=== PATIENT | male | born 1995 | race African-American/Black ===

== ENCOUNTER 2020-06-04 12:59 | Emergency (ER) | payer SELFPAY ==
[~2020-06-04] VITALS: Ht 177.8 cm; Wt 181.0 kg
[2020-06-04 13:27] VITALS: BP 150/81
--- NOTE | 2020-06-04 15:32 | PHYS DOC ---
Past Medical History Past Medical History: No Pertinent History (ANA BERMAN APRN) Smoking Status: Never Smoker Alcohol Use: None (ANA BERMAN APRN) General Adult EDM: Chief Complaint: INSECT BITE HPI: HPI: Patient is a 24 year old male who presents with complaints of waking up with a insect bite to his right lower left quadrant approximately 4 days ago and has since then become red and swollen. Patient states it is slightly painful and rates the pain at a 2/10 pain scale. Patient denies putting any ointments or other treatments to the area other than taking normal baths and showers since noticing the bite. Patient denies any drainage coming from the bite radha. Patient states he is unsure what bit him as he did not see any insect in his bed when he woke up. Patient denies any fever or chills, nasal congestion or sore throat. Patient denies any cough or shortness of breath. Patient denies any chest pains or edema to his extremities. Patient denies any abdominal pains other than the area where the bite radha is on his right lower quadrant area. Patient denies any nausea vomiting or diarrhea or constipation. Patient denies any problems urinating. Patient denies any back or joint pains. Patient does complain of a rash at the area of the bite that has become worse over the past 4 days. Patient denies any itching sensation to the area. Patient denies any headaches, weaknesses, or sensory changes. Patient denies any swollen glands. Patient denies any recent depressions or anxieties or life changes. Patient states no one else living in his home has been bitten nor has the same symptoms as he. (ANA BERMAN APRN) Review of Systems: Review of Systems: Constitutional: Denies fever or chills. Eyes: Denies change in visual acuity. HENT: Denies nasal congestion or sore throat. Respiratory: Denies cough or shortness of breath. Cardiovascular: Denies chest pain or edema. GI: Denies abdominal pain, nausea, vomiting, diarrhea. Musculoskeletal: Denies back pain or joint pain. Integument: Complains of insect bite to right lower quadrant abdomen with rash without purulent drainage without urticaria. Neurologic: Denies headache, focal weakness or sensory changes. Lymphatic: Denies swollen glands. Psychiatric: Denies depression or anxiety. (ANA BERMAN APRN) Heart Score: Risk Factors: Risk Factors: DM, Current or recent (<one month) smoker, HTN, HLP, family history of CAD, obesity. Risk Scores: Score 0 - 3: 2.5% MACE over next 6 weeks - Discharge Home Score 4 - 6: 20.3% MACE over next 6 weeks - Admit for Clinical Observation Score 7 - 10: 72.7% MACE over next 6 weeks - Early Invasive Strategies (ANA BERMAN APRN) Family History: Family History: No family history significant to this ER visit today. (ANA BERMAN APRN) Current Medications: Patient denies taking prescription medications at home. (ANA BERMAN APRN) Allergies: Allergies: Patient denies allergies to medications. Allergies Coded Allergies Type Severity Reaction Last Updated Verified No Known Drug Allergies 06/04/20 No (ANA BERMAN APRN) Physical Exam: PE: Constitutional: Well developed, well nourished, no acute distress, non-toxic appearance. HENT: Normocephalic, atraumatic, bilateral external ears normal, oropharynx moist, no oral exudates, nose normal. Eyes: PERRLA, EOMI, conjunctiva normal, no discharge. Pupils 5 mm. Neck: Normal range of motion, no tenderness, supple, no stridor. Cardiovascular:Heart rate regular rhythm, no murmur heart sounds S1-S2, no abnormalities noted per auscultation Lungs & Thorax: Bilateral breath sounds clear to auscultation all all lung morrow Abdomen: Bowel sounds normal all 4 quadrants, soft, no tenderness, no masses, no pulsatile masses. Skin: Warm, dry, no erythema, has 2 mm lesion lateral to the umbilicus on the right consistent with insect bite, no purulent drainage noted. Induration around bite measuring approximately 11 cm x 5 cm centimeters rectangular shaped raised slightly erythematous rash. Area warm to touch. No target sign noted. Back: No tenderness, no CVA tenderness. Extremities: No tenderness, no cyanosis, no clubbing, ROM intact, no edema. Neurologic: Alert and oriented X 3, normal motor function, normal sensory fun ction, no focal deficits noted. Psychologic: Affect normal, judgement normal, mood normal. (ANA BERMAN APRN) Current Patient Data: Vital Signs: Vital Signs Date Time Temp Pulse Resp B/P (MAP) Pulse Ox O2 Delivery O2 Flow Rate FiO2 06/04/20 13:27 98.1 73 18 150/81 (104) 96 Room Air 98.1 (ANA BERMAN APRN) EKG: EKG: [] (ANA BERMAN APRN) Radiology/Procedures: Radiology/Procedures: [] (ANA BERMAN APRN) Course & Med Decision Making: Course & Med Decision Making Pertinent Labs and Imaging studies reviewed. (See chart for details) 24-year-old male patient presents emergency department complaining of a insect bite to his right lower abdomen area he noticed when he woke up approximately 4 days ago. Patient did not see insect and is not sure what bit him. Patient states it started out as a red radha on his abdomen that was slightly itching and has since then become red and swollen in the area. Without purulent drainage. Upon examination patient had an approximately 2 mm skin lesion consistent with insect bite color dark maroon spherical shaped with erythema and induration light pink skin rash that measured 11 x 5 cm tubular shape around area, no target lesions noted. Patient not complaining of body aches or generalized weaknesses or fevers or chills. No lymphadenopathy noted. Not concerning for tickborne illness. Examination consistent with cellulitis infection after insect bite. Discussed with patient need to start regimen of antibiotics. Reviewed with patient antibiotic use and need to complete antibiotics as dire cted. Reviewed with patient wound care instructions and return to ER concerns. Patient agreeable to discharge planning. Patient to follow-up with the primary care doctor for further evaluation of insect bite. Return to ER concerns. Patient has no further questions or concerns. (NAA BERMAN APRN) Tricia Disclaimer: Tricia Disclaimer: This electronic medical record was generated, in whole or in part, using a voice recognition dictation system. (ANA BERMAN APRN) Departure Departure Impression: Primary Impression: Insect bite (nonvenomous) of abdominal wall, initial encounter Additional Impression: Cellulitis Qualified Codes: L03.311 - Cellulitis of abdominal wall Disposition: HOME, SELF-CARE Condition: GOOD Referrals: NO PCP (PCP) Patient Instructions: Cellulitis, Insect Bite Additional Instructions: TAKE PRESCRIBED ANTIBIOTICS DIRECTED, SEE YOUR DOCTOR SOON FOR RE-EVALUATION. RETURN TO THE ER FOR FURTHER CONCERNS. Scripts Mupirocin (MUPIROCIN OINTMENT) 22 Gm Oint...g. 1 ROSA TP TID for WOUND CARE, #1 TUBE 0 Refills Prov: ANA BERMAN APRN 06/04/20 Cephalexin (CEPHALEXIN) 250 Mg/5 Ml Susp.recon 500 MG PO QID for CELLULITIS INFECTION for 7 Days, #280 SUSPENSION 0 Refills Prov: ANA BERMAN APRN 06/04/20 Justicifation of Admission Dx: Justifications for Admission: Justification of Admission Dx: N/A (ANA BERMAN APRN) Attending Signature Attending Signature I have reviewed the PA/FLEET ASSISTANT's note and plan of care. I was available for consult ation as needed during the patient's visit in the emergency department. I agree with the clinical impression, plan, and disposition. (ANA MITCHELL DO) ANA BERMAN APRN Jun 04, 2020 15:31 ANA MITCHELL DO Jun 06, 2020 06:31
[2020-06-04] MEDS ORDERED: MUPI22OI2 TP (15:41)
[2020-06-04] MEDS ORDERED: CEPH250S30 PO (15:41)
== END 2020-06-04 15:57 | disposition home or self-care (01) ==
LOC: ER 12:59
DX: S30.861A Insect bite (nonvenomous) of abdominal wall, initial encounter (principal); L03.311 Cellulitis of abdominal wall; W57.XXXA Bitten or stung by nonvenomous insect and other nonvenomous arthropods, initial encounter; Y93.89 Activity, other specified; Y92.89 Other specified places as the place of occurrence of the external cause; Y99.8 Other external cause status
CPT/HCPCS: 99283

== ENCOUNTER 2021-06-02 12:16 | Emergency (ER) | payer SELFPAY ==
[~2021-06-02] VITALS: Ht 177.8 cm; Wt 186.0 kg
[~2021-06-02 12:16] MED LIST: CEPH250S30 PO; MUPI22OI2 TP
--- NOTE | 2021-06-02 14:28 | ED.ADGEN ---
Past Medical History Past Medical History: No Pertinent History Smoking Status: Never Smoker Alcohol Use: None General Adult EDM: Chief Complaint: SORE THROAT HPI: HPI: Patient is a morbidly obese 25 year old AA male who presents to the emergency department with complaints of a sore throat, fatigue, headache, nasal congestion, nausea, and nonproductive cough for the last 5 days. Patient states he has not been immunized against COVID-19. He denies any known exposure to COVID-19. Patient does work with the public at [employer]. Patient states he has noticed decreased taste and smell today. He denies any abdominal pain, vomiting, diarrhea, chest pain, palpitations, dizziness, back pain, or dysuria. He currently rates his throat pain a 10 out of 10 on the pain scale, he denies any difficulty speaking he reports pain with swallowing. Patient states he has been able to swallow fluids and keep his liquids down. Review of Systems: Review of Systems: Complete ROS is negative unless otherwise noted in HPI. Allergies: Allergies: Allergies Coded Allergies Type Severity Reaction Last Updated Verified No Known Drug Allergies 06/04/20 No Physical Exam: PE: See Above Constitutional: Well developed, well nourished, no acute distress, non-toxic appearance, morbidly obese. [] HENT: Normocephalic, atraumatic, bilateral external ears normal, nose normal, erythema of posterior pharynx, 2+ tonsils antibiotics [] Eyes: PERRLA, EOMI, conjunctiva normal, no discharge. [] Neck: Normal range of motion, no stridor. [] Cardiovascular:Heart rate regular rhythm Lungs & Thorax: Respirations even and unlabored, no retractions, no respiratory distress Abdomen: soft, no tenderness Skin: Warm, dry, no erythema, no rash. [] Extremities: No cyanosis, ROM intact, no edema. [] Neurologic: Alert and oriented X 3, normal motor, normal sensory, no focal deficits noted. [] Psychologic: Affect normal, judgement normal, mood normal. [] Current Patient Data: Vital Signs: Vital Signs Date Time Temp Pulse Resp B/P (MAP) Pulse Ox O2 Delivery O2 Flow Rate FiO2 06/02/21 15:13 97.7 97 16 148/50 97 Room Air 97.7 EKG: EKG: [] Heart Score: C/O Chest Pain: No Radiology/Procedures: Radiology/Procedures: Rapid strep test is negative, Covid test is pending [] Course & Med Decision Making: Course & Med Decision Making Pertinent Labs and Imaging studies reviewed. (See chart for details) Patient was given verbal discharge instructions by myself. He left prior to receiving his written discharge instructions. 1913-I received a call from the patient and his mother who requested a copy of his written discharge instructions I advised her that he left prior to receiving the written instructions and they can return to the hospital to get a copy of them at the triage desk. [] Dragon Disclaimer: Dragon Disclaimer: This electronic medical record was generated, in whole or in part, using a voice recognition dictation system. Departure Departure Impression: Primary Impression: Pharyngitis Additional Impression: Person under investigation for COVID-19 Disposition: HOME / SELF CARE / HOMELESS Condition: STABLE Referrals: NO PCP (PCP) Patient Instructions: Viral and Bacterial Pharyngitis, Ttah-cm-Evow Additional Instructions: Recommend warm salt water gargles as needed for relief of discomfort. Alternate Tylenol and ibuprofen as needed for fever/pain. Please follow the following COVID-19 instructions your test result is not available yet and should be available within the next 1 to 2 days. Return to the ER if your symptoms worsen or your breathing becomes labored. You have been tested for or diagnosed with COVID-19. It is an infection caused by a new type of coronavirus. COVID-19 will cause cold-like or mild flu symptoms in most. It can cause more severe symptoms like problems breathing in some. There is no treatment for COVID-19. The body will clear the infection over time. Self-care will help to ease discomfort. Steps to Take: Self-Care Rest as needed. Healthy habits may help you feel better. Steps include: Choose healthy foods including fruits and vegetables. Drink water throughout the day. Get plenty of sleep each night. If you smoke, try to quit. It may ease breathing. Avoid alcohol. Keep Others Healthy The virus can spread to others. Droplets are released every time you sneeze or cough. The droplets can get into the mouth, nose, or eyes of people near you and lead to infection. To lower the chances of spreading COVID-19 to others: Stay at home until your doctor has said it is safe to leave. If you tested positive this will mean staying isolated until both of the following are true: At least 7 days have passed since the start of illness. You are free of fever for at least 72 hours without the use of medicine. During this time: - Avoid public areas, events, or transportation. Do not return to work or school until your doctor has said it is safe to do so. - Call ahead if you need to go to a medical center. Let them know you may have COVID-19. It will help them guide you where to go. They may also ask you to wear a facemask when you come to the office. - If you call for emergency medical services, let them know you may have COVID- 19. While at home: - Try to avoid close contact with others. Stay about 6 feet away. - If possible, spend most of your time in a separate room from others. - Use a face mask if you will be in close contact with others such as sharing a room or vehicle. - Have someone wipe down common surfaces in the home. Use household pit supervisor every day on areas like doorknobs, counters, or sinks. - Cough or sneeze into a tissue. Throw the tissue away right after use. If a tissue is not available, cough or sneeze into your elbow. - Wash your hands often. Wash them after sneezing or coughing. Use soap and water and wash for at least 20 seconds. Alcohol based hand supervisor housecleaner can be used if soap and water is not available. - Do not prepare food for others. Avoid sharing personal items like forks, spoons, or toothbrushes. - Avoid close contact with pets while you are sick. There is no evidence of the virus passing to pets. This is a safety step until more is known about this virus. Isolation can be frustrating. Social interaction can help. Keep in touch with friends and family through phone and tech options. You can still interact with others in your home, just keep a safe distance of about 6 feet. Follow-up: Your doctors office will check in with you to see if there are any changes in your health. You may be asked to keep track of symptoms to share with them. They will also let you know when you are clear to be in public again. Problems to Look Out For: Contact your doctor if your recovery is not going as you expect. Get emergency care if you have problems such as: - Trouble breathing - Nonstop chest pain or pressure - Changes in awareness, confusion, or problems waking - Lips or face have bluish color - Worsening of symptoms If you think you have an emergency, call for emergency medical services right away. As taken from [facility] Health Problem Qualifiers Primary Impression: Pharyngitis Pharyngitis/tonsillitis etiology: unspecified etiology Qualified Codes: J02.9 - Acute pharyngitis, unspecified BECCA FULLER SPECIAL PROCEDURES TECHNOLOGIST Jun 02, 2021 14:28
[2021-06-02 15:13] VITALS: BP 148/50
--- NOTE | 2021-06-05 09:04 | NUR ---
IP: Attempted to contact pt concerning covid results. No answer, left a voicemail to return the call.
--- NOTE | 2021-06-05 09:36 | NUR ---
IP: Informed pt of negative covid test. Pt verbalized understanding.
== END 2021-06-02 16:18 | disposition home or self-care (01) ==
LOC: ER 12:16
DX: J02.9 Acute pharyngitis, unspecified (principal); Z20.822 Contact with and (suspected) exposure to COVID-19
CPT/HCPCS: 87070; 87880; 99283; U0003; U0005